=== PATIENT | female | born 1995 | race Caucasian/White ===

== ENCOUNTER → 2018-11-15 10:26 | Outpatient (CLI) | payer MEDICAID, SELFPAY ==
[2018-11-15 09:10] VITALS: BMI 33.7
[2018-11-15 11:01] LABS: Absolute Lymphocyte Count 2.31 X10^3/uL (0.83-4.51); Absolute Neutrophil Count 5.5 X10^3/uL (2.0-7.7); Basophil# 0.03 X10^3/uL; Basophil% 0.3 % (0-1); Eosinophil# 0.15 X10^3/uL; Eosinophils% 1.7 % (0-5); Hematocrit 36.3 % (37-47); Hemoglobin 12.4 g/dL (12.0-15.0); Lymphocyte # 2.31 X10^3/ul (4.0); Lymphocyte % 26.1 % (19-41); Mean Corp Hgb Conc 34.2 g/dL (32-36); Mean Corpuscular Hgb 29.7 pg (27.0-32.0); Mean Corpuscular Volume 87.1 fL (81-99); Mean Platelet Vol. 9.8 fl (6.2-12.0); NRBC Flagged by Analyzer 0 % (0-5); Neutrophil # 5.52 X10^3/uL (2.7-7.7); Neutrophil % 62.4 % (47-70); Platelet Count 276 K/mm3 (150-450); RBC Distribution Width CV 12.8 % (11.6-14.6); RBC Distribution Width SD 40.7 fl (35.1-43.9); Red Blood Count 4.17 M/mm3 (4.2-5.4); White Blood Count 8.9 K/mm3 (4.4-11.0)
[2018-11-15 11:11] LABS: Glucose Challenge Gest 1H 50g 82 mg/dL (70-140)
[2018-11-15 12:34] LABS: HIV - WCH Non-Reactive (Nonreactive); Hepatitis B Surface Antigen Non-Reactive (Nonreactive); Rubella IgG 3.8 IU/mL
[2018-11-18 01:45] LABS: Rapid Plasmin Reagin (RPR) NONREACTIVE (NONREACTIVE)
== END ==
PROVIDERS: Family Provider Family Medicine; PCP Family Medicine; Referring Provider Obstetrics & Gynecology; Visit Provider Obstetrics & Gynecology
DX: O09.90 Supervision of high risk pregnancy, unspecified, unspecified trimester (principal); Z3A.00 Weeks of gestation of pregnancy not specified
CPT/HCPCS: 36415; 82950; 85025; 86592; 86703; 86762; 86850; 86900; 86901; 87340

== ENCOUNTER → 2018-11-15 11:41 | Outpatient (CLI) | payer MEDICAID, SELFPAY ==
[2018-11-15 09:10] VITALS: BMI 33.7
[2018-11-15 16:25] LABS: Chlamydia Trachomatis by PCR Negative (Negative); Neisserai gonorrhoeae by PCR Negative (Negative); Probe Check PASS; Sample Adequacy Control PASS; Specimen Processing Control PASS
[2018-12-13 15:27] LABS: HPV Reflexed? NOT INDICATED
== END ==
PROVIDERS: Family Provider Family Medicine; PCP Family Medicine; Referring Provider Obstetrics & Gynecology; Visit Provider Obstetrics & Gynecology
DX: Z12.4 Encounter for screening for malignant neoplasm of cervix (principal); O09.90 Supervision of high risk pregnancy, unspecified, unspecified trimester; Z3A.00 Weeks of gestation of pregnancy not specified
CPT/HCPCS: 87086; 87088; 87491; 87591; 87624; 88175; G0145

== ENCOUNTER → 2018-12-15 10:41 | Outpatient (CLI) | payer MEDICAID, SELFPAY ==
[2018-12-15 10:16] VITALS: BMI 33.7
[2018-12-15 13:35] LABS: Amphetamine Urine VISTA NEGATIVE (<1000 ng/mL); Barbiturate Urine VISTA NEGATIVE (< 200 ng/mL); Benzodiazepine Urine VISTA NEGATIVE (< 200 ng/mL); Cocaine Urine VISTA NEGATIVE (< 300 ng/mL); Ecstacy Urine VISTA NEGATIVE (< 500 ng/mL); Methadone Urine VISTA NEGATIVE (< 300 ng/mL); PCP Urine VISTA NEGATIVE (< 25 ng/mL); THC Urine VISTA POSITIVE (< 50 ng/mL); Vista UDS pH Range 6
== END ==
PROVIDERS: Family Provider Family Medicine; PCP Family Medicine; Referring Provider Obstetrics & Gynecology; Visit Provider Obstetrics & Gynecology
DX: Z34.82 Encounter for supervision of other normal pregnancy, second trimester (principal); Z31.430 Encounter of female for testing for genetic disease carrier status for procreative management; F12.10 Cannabis abuse, uncomplicated
CPT/HCPCS: 36415; 80307

== ENCOUNTER → 2019-02-07 09:05 | Outpatient (CLI) | payer MEDICAID, SELFPAY ==
[2019-01-11 13:21] VITALS: BMI 33.7
--- NOTE | 2019-02-07 09:07 | US_ITS ---
STUDY: SECOND AND THIRD TRIMESTER OBSTETRICAL ULTRASOUND REASON FOR EXAM: Female, 23 years old . anatomy. LMP: September 04, 2018. TECHNIQUE: Transabdominal TECHNICAL QUALITY: Adequate. PRIOR ULTRASOUND: None. FINDINGS: There is a single intrauterine fetus. The fetus is in an transverse lie with the head on the maternal left side. There is demonstrated cardiac activity with a heart rate of 150 bpm. There is a normal amniotic fluid volume. The largest amniotic fluid pocket measures 2.8 cm x 7.3 cm. The amniotic fluid index (LIZ) is within normal limits. The placenta is posterior in location and is not low lying. There are Grade 1 placental changes. The cervix measures 4.3 cm in length. The bilateral adnexal regions are normal. BIOMETRY: BPD: 5.1 cm: 21 weeks, 2 days HC: 19.8 cm: 21 weeks, 6 days AC: 18.0 cm: 22 weeks, 6 days FL: 3.7 cm: 21 weeks, 4 days CI: 75% FL/BPD: 72% FL/HC: FL/AC: 20% HC/AC: 1.1 age by current US: 21 weeks, 6 days. SUNDEEP by current US: June 14, 2019. Estimated weight: 491 grams, +/- 73 grams, 42 %. Age by LMP: 22 weeks, 1 days. SUNDEEP by LMP: June 12, 2019. ANATOMY: Gender: Female Cranium: Normal lateral ventricles. Normal choroid plexus. Normal cerebellum. Normal cisterna magna. Normal face, nose and lips. Chest: Normal 4-chamber heart. Abdomen/Pelvis: Normal diaphragm. Normal stomach. Normal abdominal wall. Normal cord insertion. Normal 3 vessel cord. Normal kidneys. Normal bladder. Spine: Normal cervical spine. Normal thoracic spine. Normal lumbar spine. Normal sacrum. Extremities: Normal bilateral upper extremities. Normal bilateral lower extremities. US/OB Anatomy Scan IMPRESSION: Single live intrauterine gestation with a mean gestational age of 21 weeks and 6 days. Electronically Signed: Abbe Blum at 13:36 EST , Service support ,
[2019-02-07 14:36] LABS: Amphetamine Urine VISTA NEGATIVE (<1000 ng/mL); Barbiturate Urine VISTA NEGATIVE (< 200 ng/mL); Benzodiazepine Urine VISTA NEGATIVE (< 200 ng/mL); Cocaine Urine VISTA NEGATIVE (< 300 ng/mL); Ecstacy Urine VISTA NEGATIVE (< 500 ng/mL); Methadone Urine VISTA NEGATIVE (< 300 ng/mL); PCP Urine VISTA NEGATIVE (< 25 ng/mL); THC Urine VISTA POSITIVE (< 50 ng/mL); Vista UDS pH Range 7
== END ==
PROVIDERS: Family Provider Family Medicine; PCP Family Medicine; Referring Provider Nurse Practitioner Women's Health; Visit Provider Nurse Practitioner Women's Health
DX: O09.90 Supervision of high risk pregnancy, unspecified, unspecified trimester (principal); F12.10 Cannabis abuse, uncomplicated; Z3A.00 Weeks of gestation of pregnancy not specified
CPT/HCPCS: 76805; 80307

== ENCOUNTER → 2019-03-22 14:00 | Outpatient (CLI) | payer MEDICAID, SELFPAY ==
[2019-02-07 10:52] VITALS: BMI 33.7
[2019-03-22 15:04] LABS: Absolute Lymphocyte Count 2.55 X10^3/uL (0.83-4.51); Basophil# 0.03 X10^3/uL; Basophil% 0.2 % (0-1); Eosinophil# 0.19 X10^3/uL; Eosinophils% 1.5 % (0-5); Hematocrit 34.7 % (37-47); Hemoglobin 11.7 g/dL (12.0-15.0); Lymphocyte # 2.55 X10^3/ul (4.0); Lymphocyte % 20.2 % (19-41); Mean Corp Hgb Conc 33.7 g/dL (32-36); Mean Corpuscular Volume 85.9 fL (81-99); Mean Platelet Vol. 9.1 fl (6.2-12.0); Monocyte# 0.75 X10^3/uL; Monocyte% 5.9 % (0-10); NRBC Flagged by Analyzer 0 % (0-5); Neutrophil # 9.02 X10^3/uL (2.7-7.7); Neutrophil % 71.4 % (47-70); Platelet Count 310 K/mm3 (150-450); RBC Distribution Width CV 12.6 % (11.6-14.6); RBC Distribution Width SD 39.2 fl (35.1-43.9); Red Blood Count 4.04 M/mm3 (4.2-5.4); White Blood Count 12.6 K/mm3 (4.4-11.0)
[2019-03-22 15:15] LABS: Glucose Challenge Gest 1H 50g 99 mg/dL (70-140)
== END ==
PROVIDERS: Nurse Practitioner Women's Health; Family Provider Family Medicine; PCP Family Medicine; Referring Provider Obstetrics & Gynecology; Visit Provider Obstetrics & Gynecology
DX: O09.90 Supervision of high risk pregnancy, unspecified, unspecified trimester (principal); Z3A.00 Weeks of gestation of pregnancy not specified
CPT/HCPCS: 36415; 82950; 85025

== ENCOUNTER → 2019-04-19 14:23 | Outpatient (CLI) | payer MEDICAID, SELFPAY ==
[2019-04-19 14:18] VITALS: BMI 33.7
[2019-04-19 14:47] LABS: Hematocrit 35.5 % (37-47); Hemoglobin 11.7 g/dL (12.0-15.0); Mean Corpuscular Volume 84.9 fL (81-99); Platelet Count 343 K/mm3 (150-450); RBC Distribution Width CV 13.4 % (11.6-14.6); RBC Distribution Width SD 40.9 fl (35.1-43.9); Red Blood Count 4.18 M/mm3 (4.2-5.4); White Blood Count 14.1 K/mm3 (4.4-11.0)
[2019-04-19 14:48] LABS: Absolute Lymphocyte Count 2.93 X10^3/uL (0.83-4.51); Absolute Neutrophil Count 10.2 X10^3/uL (2.0-7.7); Basophil# 0.02 X10^3/uL; Basophil% 0.1 % (0-1); Eosinophil# 0.11 X10^3/uL; Eosinophils% 0.8 % (0-5); Lymphocyte # 2.93 X10^3/ul (4.0); Lymphocyte % 20.9 % (19-41); Mean Platelet Vol. 9.2 fl (6.2-12.0); Monocyte# 0.64 X10^3/uL; Monocyte% 4.6 % (0-10); NRBC Flagged by Analyzer 0 % (0-5); Neutrophil # 10.23 X10^3/uL (2.7-7.7); Neutrophil % 72.7 % (47-70)
[2019-04-19 15:13] LABS: ALB/GLOB Ratio 0.5 RATIO (0.9-2.4); AST(SGOT) 12 U/L (15-37); Alanine Aminotransfer ALT/SGPT 20 U/L (13-56); Albumin, Serum 2.6 g/dL (3.2-5.0); Alkaline Phosphatase 134 U/L (45-117); Anion Gap 6 (5-15); BUN 6 mg/dL (7-18); BUN/Creat Ratio 11.5 RATIO (10-20); Calcium,Total 9.2 mg/dL (8.5-10.1); Chloride 108 mmol/L (98-107); Creatinine, Serum 0.52 mg/dL (0.55-1.02); EST Glomerular Filtration Rate 151 mL/min (>60); Est Glom Filt Rate - Afr Amer 183 mL/min (>60); Globulin 4.8 g/dL (2.2-4.2); Glucose 92 mg/dL (74-106); Potassium 3.9 mmol/L (3.5-5.1); Protein, Total 7.4 g/dL (6.4-8.2); Sodium Level 138 mmol/L (136-145)
[2019-04-19 17:44] LABS: Protein, Urine (Random) 38.5 mg/dL (<11.9); Protein:Creat Ratio 232 mg/g CRE (0-200)
[2019-04-19 18:01] LABS: Amphetamine Urine VISTA NEGATIVE (<1000 ng/mL); Barbiturate Urine VISTA NEGATIVE (< 200 ng/mL); Benzodiazepine Urine VISTA NEGATIVE (< 200 ng/mL); Cocaine Urine VISTA NEGATIVE (< 300 ng/mL); Ecstacy Urine VISTA NEGATIVE (< 500 ng/mL); Methadone Urine VISTA NEGATIVE (< 300 ng/mL); PCP Urine VISTA NEGATIVE (< 25 ng/mL); THC Urine VISTA POSITIVE (< 50 ng/mL); Vista UDS pH Range 7
== END ==
PROVIDERS: Nurse Practitioner Women's Health; PCP Family Medicine; Referring Provider Obstetrics & Gynecology; Visit Provider Obstetrics & Gynecology
DX: O12.10 Gestational proteinuria, unspecified trimester (principal); F12.10 Cannabis abuse, uncomplicated; Z3A.00 Weeks of gestation of pregnancy not specified
CPT/HCPCS: 36415; 80053; 80307; 82570; 84156; 85025

== ENCOUNTER → 2019-05-02 11:05 | Outpatient (CLI) | payer MEDICAID, SELFPAY ==
[2019-05-02 10:50] VITALS: BMI 33.7
[2019-05-02 11:25] LABS: Absolute Lymphocyte Count 2.44 X10^3/uL (0.83-4.51); Absolute Neutrophil Count 8.3 X10^3/uL (2.0-7.7); Basophil# 0.03 X10^3/uL; Basophil% 0.3 % (0-1); Eosinophil# 0.08 X10^3/uL; Eosinophils% 0.7 % (0-5); Hematocrit 36.8 % (37-47); Hemoglobin 12.3 g/dL (12.0-15.0); Lymphocyte # 2.44 X10^3/ul (4.0); Lymphocyte % 21.2 % (19-41); Mean Corp Hgb Conc 33.4 g/dL (32-36); Mean Corpuscular Hgb 28.5 pg (27.0-32.0); Mean Corpuscular Volume 85.4 fL (81-99); Monocyte# 0.58 X10^3/uL; NRBC Flagged by Analyzer 0 % (0-5); Neutrophil # 8.32 X10^3/uL (2.7-7.7); Neutrophil % 72.1 % (47-70); Platelet Count 357 K/mm3 (150-450); RBC Distribution Width CV 13.3 % (11.6-14.6); RBC Distribution Width SD 41.2 fl (35.1-43.9); Red Blood Count 4.31 M/mm3 (4.2-5.4); White Blood Count 11.5 K/mm3 (4.4-11.0)
[2019-05-02 11:41] LABS: Protein, Urine (Random) 60.8 mg/dL (<11.9); Protein:Creat Ratio 251 mg/g CRE (0-200)
[2019-05-02 11:43] LABS: ALB/GLOB Ratio 0.5 RATIO (0.9-2.4); AST(SGOT) 13 U/L (15-37); Alanine Aminotransfer ALT/SGPT 18 U/L (13-56); Albumin, Serum 2.6 g/dL (3.2-5.0); Alkaline Phosphatase 142 U/L (45-117); Anion Gap 4 (5-15); BUN 7 mg/dL (7-18); BUN/Creat Ratio 12.9 RATIO (10-20); Calcium,Total 8.8 mg/dL (8.5-10.1); Chloride 105 mmol/L (98-107); Creatinine, Serum 0.54 mg/dL (0.55-1.02); EST Glomerular Filtration Rate 145 mL/min (>60); Est Glom Filt Rate - Afr Amer 175 mL/min (>60); Glucose 89 mg/dL (74-106); Potassium 3.9 mmol/L (3.5-5.1); Protein, Total 7.6 g/dL (6.4-8.2); Sodium Level 136 mmol/L (136-145)
== END ==
PROVIDERS: PCP Family Medicine; Referring Provider Nurse Practitioner Women's Health; Visit Provider Nurse Practitioner Women's Health
DX: O12.10 Gestational proteinuria, unspecified trimester (principal)
CPT/HCPCS: 36415; 80053; 82570; 84156; 85025

== ENCOUNTER 2019-05-12 07:25 | Outpatient (CLI) | payer MEDICAID, SELFPAY ==
[2019-05-02 10:50] VITALS: BMI 33.7
[2019-05-12] VITALS (11 sets, daily range): BP systolic 109–136; BP diastolic 71–100; PULSE 62–90; TEMP 36.7; O2SAT 96; BMI 36.3
[2019-05-12 09:41] LABS: Hematocrit 37.3 % (37-47); Hemoglobin 12.6 g/dL (12.0-15.0); Mean Corp Hgb Conc 33.8 g/dL (32-36); Mean Corpuscular Hgb 28.3 pg (27.0-32.0); Mean Corpuscular Volume 83.6 fL (81-99); Mean Platelet Vol. 9.5 fl (6.2-12.0); Platelet Count 311 K/mm3 (150-450); RBC Distribution Width CV 13.7 % (11.6-14.6); RBC Distribution Width SD 41.6 fl (35.1-43.9); Red Blood Count 4.46 M/mm3 (4.2-5.4); White Blood Count 10.6 K/mm3 (4.4-11.0)
[2019-05-12] MEDS: Acetaminophen 500 MG Tablet 1000 MG PO (09:47)
[2019-05-12 09:54] LABS: AST(SGOT) 19 U/L (15-37); Alanine Aminotransfer ALT/SGPT 20 U/L (13-56); Creatinine, Serum 0.53 mg/dL (0.55-1.02); EST Glomerular Filtration Rate 148 mL/min (>60); Est Glom Filt Rate - Afr Amer 179 mL/min (>60); Estimated Creatinine Clearance 134.23 ml/min; Uric Acid 5.7 mg/dL (2.6-6.0)
[2019-05-12 09:56] LABS: Prothrombin Time (Protime)PT. 12.5 SECONDS (11.7-14.9)
[2019-05-12 09:57] LABS: Partial Thromboplast Time 30.9 Seconds (24.1-36.2)
[2019-05-12 10:42] LABS: Protein, Urine (Random) 87.8 mg/dL (<11.9); Protein:Creat Ratio 284 mg/g CRE (0-200)
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
== END 2019-05-12 11:05 | disposition home or self-care (01) ==
LOC: WPOUT 07:42 → WP 07:42
PROVIDERS: PCP Family Medicine; Referring Provider Obstetrics & Gynecology; Visit Provider Obstetrics & Gynecology
DX: O47.9 False labor, unspecified (principal); Z3A.00 Weeks of gestation of pregnancy not specified
CPT/HCPCS: 36415; 59025; 59050; 82565; 82570; 84156; 84450; 84460; 84550; 85027; 85610; 85730; 99218; G0378

== ENCOUNTER 2019-05-14 12:20 | Inpatient (IN) | payer MEDICAID, SELFPAY ==
[2019-05-12 08:03] VITALS: BMI 36.3
[2019-05-14] VITALS (43 sets, daily range): BP systolic 109–184; BP diastolic 60–97; PULSE 63–104; TEMP 36.3–37.2; O2SAT 82–99; BMI 36.3
[2019-05-14] MEDS: Lactated Ringers 500 ML IV.SOLN. 1000 ML IV (12:01)
[2019-05-14 12:13] LABS: Absolute Lymphocyte Count 3.46 X10^3/uL (0.83-4.51); Absolute Neutrophil Count 6.6 X10^3/uL (2.0-7.7); Basophil# 0.02 X10^3/uL; Basophil% 0.2 % (0-1); Eosinophil# 0.07 X10^3/uL; Eosinophils% 0.7 % (0-5); Hemoglobin 12.6 g/dL (12.0-15.0); Lymphocyte # 3.46 X10^3/ul (4.0); Lymphocyte % 32.3 % (19-41); Mean Corp Hgb Conc 34.1 g/dL (32-36); Mean Corpuscular Hgb 28.3 pg (27.0-32.0); Mean Corpuscular Volume 83.1 fL (81-99); Mean Platelet Vol. 9.5 fl (6.2-12.0); Monocyte# 0.42 X10^3/uL; Monocyte% 3.9 % (0-10); NRBC Flagged by Analyzer 0 % (0-5); Neutrophil # 6.64 X10^3/uL (2.7-7.7); Neutrophil % 61.9 % (47-70); Platelet Count 335 K/mm3 (150-450); RBC Distribution Width CV 13.4 % (11.6-14.6); RBC Distribution Width SD 40.2 fl (35.1-43.9); Red Blood Count 4.45 M/mm3 (4.2-5.4); White Blood Count 10.7 K/mm3 (4.4-11.0)
[2019-05-14] MEDS: Lactated Ringers 500 ML 999 ML IV (12:30)
[2019-05-14] MEDS: Betamethasone/Betamethasone 30 MG/5 ML Vial 12 MG IM (12:32)
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
[2019-05-14] MEDS: Lactated Ringers 1,000 ML 200 ML IV ×2 (13:00→18:42)
[2019-05-14] MEDS: fentaNYL-bupivacaine (epidural) 100 ML BAG EPIDURAL ×2 (13:21→17:58)
[2019-05-14 14:13] LABS: Prothrombin Time (Protime)PT. 12.8 SECONDS (11.7-14.9)
[2019-05-14 14:14] LABS: Partial Thromboplast Time 29.1 Seconds (24.1-36.2)
[2019-05-14 14:19] LABS: AST(SGOT) 20 U/L (15-37); Alanine Aminotransfer ALT/SGPT 22 U/L (13-56); Creatinine, Serum 0.57 mg/dL (0.55-1.02); EST Glomerular Filtration Rate 138 mL/min (>60); Est Glom Filt Rate - Afr Amer 166 mL/min (>60); Estimated Creatinine Clearance 124.81 ml/min; Uric Acid 5.4 mg/dL (2.6-6.0)
[2019-05-14 15:42] LABS: Protein, Urine (Random) 9.7 mg/dL (<11.9); Protein:Creat Ratio 221 mg/g CRE (0-200)
[2019-05-14 15:45] LABS: Group B Strep DNA By PCR POSITIVE (Negative); Probe Check PASS
[2019-05-14 15:51] LABS: Amphetamine Urine VISTA NEGATIVE (<1000 ng/mL); Barbiturate Urine VISTA NEGATIVE (< 200 ng/mL); Benzodiazepine Urine VISTA NEGATIVE (< 200 ng/mL); Cocaine Urine VISTA NEGATIVE (< 300 ng/mL); Ecstacy Urine VISTA NEGATIVE (< 500 ng/mL); Methadone Urine VISTA NEGATIVE (< 300 ng/mL); PCP Urine VISTA NEGATIVE (< 25 ng/mL); THC Urine VISTA POSITIVE (< 50 ng/mL); Vista UDS pH Range 6
[2019-05-14] MEDS: Oxytocin 30 units/NS 500 ml 30 UNITS/500 ML IV.SOLN IV (18:58)
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
[2019-05-14] MEDS: Oxytocin 30 units/NS 500 ml 30 UNITS/500 ML IV.SOLN 334 UNITS IV (22:08)
[2019-05-15] VITALS (9 sets, daily range): BP systolic 123–143; BP diastolic 72–90; PULSE 63–78; RESP 14–16; TEMP 36.5–37.1; O2SAT 97
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
[2019-05-15] MEDS: Naproxen 250 MG Tablet 500 MG PO ×2 (11:23→20:07)
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
[2019-05-15] MEDS: Senna/Docusate Sodium 1 Tablet PO (20:07)
[2019-05-16 02:00] VITALS: BP 133/85; PULSE 72; RESP 16; TEMP 36.6
[2019-05-16 08:00] VITALS: BP 119/64; PULSE 61; RESP 16; TEMP 36.3
[2019-05-16] MEDS: Senna/Docusate Sodium 1 Tablet PO (08:03)
[2019-05-16] MEDS: Naproxen 250 MG Tablet 500 MG PO (08:03)
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
--- NOTE | 2019-05-16 08:05 | DCINST_ITS ---
Additional Instructions: If you experience any of the following, contact your healthcare provider. * Bleeding that soaks a pad every hour for 2 hours * Fever 100.4 or higher * Unrelieved incision or abdominal pain * Swelling, redness, discharge or bleeding from your incision or episiotomy site * Your incision begins to separate * Problems urinating (including inability to urinate or burning while urinating). * Visual changes * Severe headache * Flu-like symptoms * Pain or redness in one of both of your breasts * Pain, warmth, tenderness or swelling in your legs, especially the calf area * Frequent nausea and vomiting * Symptoms of depression or anxiety If you experience any of the following, call 911 or go to the nearest Emergency Room. * Chest pain * Problems breathing * Seizure activity * Partial or complete paralysis of a body part, slurred speech, weakness or drooping of the face, or a sudden inability to walk or hold your balance Allergies/Adverse Reactions: Allergies No Known Allergies Allergy (Verified 05/14/19 12:30) Medications to take at Discharge vitamin#30 30 mg iron-10 mg iron-folic acid 1 mg-omg3 capsule cap PO 05/02/19 Primary Care Physician: Annalise Caballero MD [Primary Care Provider] - Test Results: Test results from this visit will be discussed in further detail at your follow- up appointment, if applicable.
--- NOTE | 2019-05-16 08:05 | PCM.DCVAG ---
Additional Instructions: If you experience any of the following, contact your healthcare provider. Bleeding that soaks a pad every hour for 2 hours Fever 100.4 or higher Unrelieved incision or abdominal pain Swelling, redness, discharge or bleeding from your incision or episiotomy site Your incision begins to separate Problems urinating (including inability to urinate or burning while urinating). Visual changes Severe headache Flu-like symptoms Pain or redness in one of both of your breasts Pain, warmth, tenderness or swelling in your legs, especially the calf area Frequent nausea and vomiting Symptoms of depression or anxiety If you experience any of the following, call 911 or go to the nearest Emergency Room. Chest pain Problems breathing Seizure activity Partial or complete paralysis of a body part, slurred speech, weakness or drooping of the face, or a sudden inability to walk or hold your balance Allergies/Adverse Reactions: Allergies No Known Allergies Allergy (Verified 05/14/19 12:30) Medications to take at Discharge vitamin#30 30 mg iron-10 mg iron-folic acid 1 mg-omg3 capsule cap PO 05/02/19 Primary Care Physician: Annalise Caballero MD [Primary Care Provider] - Test Results: Test results from this visit will be discussed in further detail at your follow-up appointment, if applicable.
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
--- NOTE | 2019-05-16 15:40 | CASEMGMT ---
Social Work Labor and Delivery Unit Referral to [facility] ([facility]) at [phone]. Spoke with Rosa in the intake department. Referral due to substance exposed in utero as evidenced by multiple maternal drugs screens positive during . Brief maternal and histories provided. Refer to prior social work documentation for further details of social history for family. No other services requested or indicated at this time. -FLAVIO Celis, MONOGRAM TECHNICIAN
== END 2019-05-16 13:40 | disposition home or self-care (01) | DRG 560 ==
LOC: WPOUT 12:26 → WP 12:26
PROVIDERS: Admitting Provider Obstetrics & Gynecology; PCP Family Medicine; Visit Provider Obstetrics & Gynecology
DX: O60.14X0 Preterm labor third trimester with preterm delivery third trimester, not applicable or unspecified (principal); O12.14 Gestational proteinuria, complicating childbirth; O69.81X0 Labor and delivery complicated by cord around neck, without compression, not applicable or unspecified; O34.219 Maternal care for unspecified type scar from previous cesarean delivery; O99.324 Drug use complicating childbirth; F12.10 Cannabis abuse, uncomplicated; O99.334 Smoking (tobacco) complicating childbirth; F17.210 Nicotine dependence, cigarettes, uncomplicated; O99.214 Obesity complicating childbirth; E66.9 Obesity, unspecified; Z20.1 Contact with and (suspected) exposure to tuberculosis; Z87.01 Personal history of pneumonia (recurrent); Z3A.35 35 weeks gestation of pregnancy; Z37.0 Single live birth
CPT/HCPCS: 36415; 59025; 59050; 80307; 82565; 82570; 84156; 84450; 84460; 84550; 85025; 85027; 85610; 85730; 86850; 86900; 86901; 87653; 99218; J7120; G0378; J0702

== ENCOUNTER 2019-12-21 12:40 | Emergency (ER) | payer MEDICAID, SELFPAY ==
[2019-05-14 12:25] VITALS: BMI 36.3
[2019-12-21 12:41] VITALS: BP 140/96; PULSE 98; RESP 18; TEMP 36.6; O2SAT 99; BMI 33.6
--- NOTE | 2019-12-21 13:13 | ED.DCSUM_ITS ---
- ER Visit Summary Date of Service: 12/21/19 Chief Complaint: Nasal abscess with facial swelling History of Present Illness: The patient is a 24 F dates that she noticed a pimple in the right side of her nose for the last 2 days. She tried to pop it with a needle yesterday and squeezing it. Says now she has some swelling the right side of her face. Denies any fever chills. Denies any eye pain. No prior history. She is not diabetic. She has no allergies. Physical Examination: Well-appearing young female vital signs stable afebrile. She does not look septic or toxic she is in no distress. H EENT exam dry reactive light extra motions are intact. There is no proptosis. There is no eye pain with range of motion. She has mild swelling to her right cheek area. Also below her right eye. The right naris has minimal swelling but I do not see any obvious abscess that needs drained. Left side is unremarkable left face is unremarkable. Neck is nontender. There is no preauricular or cervical lymphadenopathy. Lungs clear to auscultation. Heart regular rhythm no murmur. Abdomen soft nontender. Patient is moving all 4 extremities. Neurovascular intact. Neurologic exam normal. Test Results: None Emergency Department Course and Treatment: Patient has mild right-sided facial swelling from trying to I&D a nasal pimple herself. There is nothing to drain at this time. She will be started on both Bactrim and Keflex. I have ENT on page of follow-up with the patient in the next few days. She knows to return if worse. Treatment Plan: Keflex 3 times daily Bactrim twice daily both for 10 days. Tylenol Motrin for pain. Return emergency department feeling a lot worse or swelling a lot worse. Follow-up with ENT either tomorrow or Wednesday. After speaking the ENT they also wanted the patient on Bactroban cream. Disposition: Discharge Impression: Right facial cellulitis secondary to reported right nasal abscess This note was generated with [employer] dictation software. It may contain incorrect words, spelling, and punctuation that were not noted in review of the chart prior to signing ED Disposition - Plan for ED Patient: Disposition: Home or Assisted Living Instructions: ED FACIAL CELLULITIS Prescriptions: Smz/Tmp Ds [Bactrim Ds] 1 tab PO BID #20 tab Prescription Printed Cephalexin [Keflex] 500 mg PO Q8 #30 cap Prescription Printed Referrals: Jesus Pedersen MD [STAFF PHYSICIAN] - As soon as possible Additional Instructions: Tylenol and/or Motrin for pain. Follow-up with Dr. Amilcar Torerz of ENT either tomorrow or Wednesday. Call their office for an appointment later today. Keflex antibiotic 3 times a day and Bactrim antibiotic twice a day both for 10 days. Return emergency department if feeling a lot worse or the swelling is a lot worse if you are unable to get into see ENT in the next several days.
--- NOTE | 2019-12-21 13:16 | ED.DEP ---
ED Disposition - Plan for ED Patient: Disposition: Home or Assisted Living Instructions: ED FACIAL CELLULITIS Prescriptions: Smz/Tmp Ds [Bactrim Ds] 1 tab PO BID #20 tab Prescription Printed Mupirocin Calcium [Bactroban Nasal] 1 gm NS BID #1 oint...g. Prescription Printed Cephalexin [Keflex] 500 mg PO Q8 #30 cap Prescription Printed Referrals: Jesus Pedersen MD [STAFF PHYSICIAN] - As soon as possible Additional Instructions: Tylenol and/or Motrin for pain. Follow-up with Dr. Amilcar Torrez of ENT either tomorrow or Wednesday. Call their office for an appointment later today. Keflex antibiotic 3 times a day and Bactrim antibiotic twice a day both for 10 days. Return emergency department if feeling a lot worse or the swelling is a lot worse if you are unable to get into see ENT in the next several days.
[2019-12-21] MEDS: Cephalexin 250 MG Capsule 500 MG PO (13:18)
[2019-12-21] MEDS: Smz/Tmp Ds Tablet 1 TABLET PO (13:18)
== END 2019-12-21 13:26 | disposition home or self-care (01) ==
LOC: ED 13:20
PROVIDERS: Emergency Provider Emergency Medicine; PCP Family Medicine
DX: L03.211 Cellulitis of face (principal); Z72.0 Tobacco use
CPT/HCPCS: 99281; 99284

== ENCOUNTER → 2020-07-16 10:56 | Outpatient (CLI) | payer MEDICAID, SELFPAY ==
--- NOTE | 2020-07-16 10:58 | US_ITS ---
STUDY: FIRST TRIMESTER OBSTETRICAL ULTRASOUND REASON FOR EXAM: Female, 24 years old viability LMP: 05/22/2020. TECHNIQUE: Transabdominal and Transvaginal TECHNICAL QUALITY: Adequate. PRIOR ULTRASOUND: None. FINDINGS: There is visualization of a single gestational sac in a normal intrauterine position. The mean sac diameter (MSD) measures 2.63 mm, indicating an estimated gestational age (EGA) of 7 weeks, 4 days. The gestational sac shape is within normal limits. There is a visualized yolk sac. The yolk sac measures 3.2 mm. The placenta is non-visualized. There is visualization of a live embryo. The crown-rump length (CRL) measures 1.51 cm, indicating an estimated gestational age (EGA) of 7 weeks, 6 days. There is demonstrated cardiac activity with a heart rate of 149 bpm. The estimated gestation age (EGA) by LMP is 7 weeks, 6 days. The estimated date of delivery (SUNDEEP) by LMP is 02/26/2021. The estimated gestation age (EGA) by US is 7 weeks, 5 days. The estimated date of delivery (SUNDEEP) by US is 02/27/2021. The uterus measures 9.2 cm x 6.6 cm x 5.2 cm. There is no demonstrated uterine fibroid. The cervix is closed. The right ovary is not visualized. The left ovary is not visualized. There is no fluid in the cul de sac. US/Transvaginal w/Preg US IMPRESSION: Single live intrauterine gestation with a mean gestational age of 7 weeks and 5 days. Electronically Signed: Abbe Blum MD at 15:55 EDT , Service support ,
== END ==
PROVIDERS: PCP Nurse Practitioner Family; Referring Provider Obstetrics & Gynecology; Visit Provider Obstetrics & Gynecology
DX: Z34.90 Encounter for supervision of normal pregnancy, unspecified, unspecified trimester (principal)
CPT/HCPCS: 76817

== ENCOUNTER → 2020-07-25 | Outpatient (CLI) | payer MEDICAID, SELFPAY ==
[2020-07-25 10:23] VITALS: BMI 33.6
[2020-07-25 13:39] LABS: Amphetamine Urine VISTA NEGATIVE (<1000 ng/mL); Barbiturate Urine VISTA NEGATIVE (< 200 ng/mL); Benzodiazepine Urine VISTA NEGATIVE (< 200 ng/mL); Cocaine Urine VISTA NEGATIVE (< 300 ng/mL); Ecstacy Urine VISTA NEGATIVE (< 500 ng/mL); Methadone Urine VISTA NEGATIVE (< 300 ng/mL); PCP Urine VISTA NEGATIVE (< 25 ng/mL); THC Urine VISTA POSITIVE (< 50 ng/mL); Vista UDS pH Range 7
[2020-07-26 20:08] LABS: Chlamydia By Nucleic Acid AMP Negative (Negative)
[2020-07-27 09:13] LABS: Gonococcus By Nucleic Acid AMP Negative (Negative)
[2020-08-01 16:57] LABS: HPV APTIMA, High Risk Negative (Negative)
[2020-08-01 16:58] LABS: HPV Reflexed? YES, CHARGE PATIENT
== END | disposition home or self-care (01) ==
LOC: LABSPEC 12:38
PROVIDERS: PCP Nurse Practitioner Family; Referring Provider Obstetrics & Gynecology; Visit Provider Obstetrics & Gynecology
DX: Z34.90 Encounter for supervision of normal pregnancy, unspecified, unspecified trimester (principal)
CPT/HCPCS: 80307; 87086; 87491; 87591; 87624; 88175; G0145

== ENCOUNTER → 2020-08-07 10:27 | Outpatient (CLI) | payer MEDICAID, SELFPAY ==
[2020-08-07 10:00] VITALS: BMI 33.6
[2020-08-07 11:53] LABS: Absolute Neutrophil Count 4.1 X10^3/uL (2.0-7.7); Basophil# 0.01 X10^3/uL; Basophil% 0.2 % (0-1); Eosinophils% 1.5 % (0-5); Hemoglobin 12.6 g/dL (12.0-15.0); Lymphocyte % 28.7 % (19-41); Mean Corp Hgb Conc 34.1 g/dL (32-36); Mean Corpuscular Hgb 29.5 pg (27.0-32.0); Mean Corpuscular Volume 86.7 fL (81-99); Monocyte# 0.48 X10^3/uL; Monocyte% 7.3 % (0-10); NRBC Flagged by Analyzer 0 % (0-5); Platelet Count 271 K/mm3 (150-450); RBC Distribution Width CV 12.7 % (11.6-14.6); Red Blood Count 4.27 M/mm3 (4.2-5.4); White Blood Count 6.6 K/mm3 (4.4-11.0)
[2020-08-07 12:31] LABS: Glucose Challenge Gest 1H 50g 91 mg/dL (70-140)
[2020-08-07 13:03] LABS: NATERA MAILED SPECIMEN
[2020-08-07 13:49] LABS: HIV - WCH Non-Reactive (Nonreactive); Hepatitis B Surface Antigen Non-Reactive (Nonreactive); Hepatitis C Antibody REACTIVE (Nonreactive); Rubella IgG Non-Reactive (Nonreactive); Syphilis Antibodies Non-reactive
== END ==
PROVIDERS: PCP Nurse Practitioner Family; Referring Provider Obstetrics & Gynecology; Visit Provider Obstetrics & Gynecology
DX: O99.210 Obesity complicating pregnancy, unspecified trimester (principal); E66.9 Obesity, unspecified; Z31.430 Encounter of female for testing for genetic disease carrier status for procreative management; Z3A.00 Weeks of gestation of pregnancy not specified
CPT/HCPCS: 36415; 82950; 85025; 86703; 86762; 86780; 86803; 86850; 86900; 86901; 87340; 87521

== ENCOUNTER → 2021-02-06 | Outpatient (CLI) | payer MEDICAID, SELFPAY ==
[2021-02-06 13:33] LABS: Amphetamine Urine VISTA NEGATIVE (<1000 ng/mL); Barbiturate Urine VISTA NEGATIVE (< 200 ng/mL); Benzodiazepine Urine VISTA NEGATIVE (< 200 ng/mL); Cocaine Urine VISTA NEGATIVE (< 300 ng/mL); Ecstacy Urine VISTA NEGATIVE (< 500 ng/mL); Methadone Urine VISTA NEGATIVE (< 300 ng/mL); PCP Urine VISTA NEGATIVE (< 25 ng/mL); THC Urine VISTA POSITIVE (< 50 ng/mL); Vista UDS pH Range 5
== END | disposition home or self-care (01) ==
LOC: LABSPEC 12:40
PROVIDERS: PCP Nurse Practitioner Family; Referring Provider Obstetrics & Gynecology; Visit Provider Obstetrics & Gynecology
DX: O99.321 Drug use complicating pregnancy, first trimester (principal); F12.10 Cannabis abuse, uncomplicated; Z3A.00 Weeks of gestation of pregnancy not specified
CPT/HCPCS: 80307; 87081

== ENCOUNTER 2021-02-14 20:09 | Outpatient (CLI) | payer MEDICAID, SELFPAY ==
[2021-02-14 20:28] VITALS: PULSE 84; TEMP 36.5; O2SAT 97
[2021-02-14 20:31] VITALS: BP 137/81; PULSE 80
[2021-02-14 20:36] VITALS: BMI 35.9
[2021-02-14 20:45] VITALS: PULSE 73; O2SAT 97
[2021-02-14 21:57] VITALS: PULSE 76; O2SAT 99
[2021-02-14 22:02] VITALS: PULSE 78; O2SAT 98
[2021-02-15 00:19] VITALS: BP 133/84; PULSE 67
[2021-02-15 03:45] LABS: Amphetamine Urine VISTA NEGATIVE (<1000 ng/mL); Barbiturate Urine VISTA NEGATIVE (< 200 ng/mL); Benzodiazepine Urine VISTA NEGATIVE (< 200 ng/mL); Cocaine Urine VISTA NEGATIVE (< 300 ng/mL); Ecstacy Urine VISTA NEGATIVE (< 500 ng/mL); Methadone Urine VISTA NEGATIVE (< 300 ng/mL); PCP Urine VISTA NEGATIVE (< 25 ng/mL); THC Urine VISTA POSITIVE (< 50 ng/mL); Vista UDS pH Range 5
--- NOTE | 2021-02-15 04:07 | OB.TRI.PN ---
Progress Notes Date of Service: 02/15/21 Progress Note: Patient presents for triage evaluation secondary to contractions FHT: 130 Moderate variability reactive no decelerations category I tracing [place]: q 4-6 Contractions Assessment and plan: false labor no cervical change Reactive NST, reassuring maternal and status patient discharged to home to follow-up as scheduled. See problem list details for additional plan information. Laboratory Studies: Laboratory Tests 02/15/21 Range/Units 01:00 Urine Opiates Screen NEGATIVE (< 300 ng/mL) Urine Methadone Screen NEGATIVE (< 300 ng/mL) Ur Barbiturates Screen NEGATIVE (< 200 ng/mL) Ur Phencyclidine Scrn NEGATIVE (< 25 ng/mL) Ur Amphetamines Screen NEGATIVE (<1000 ng/mL) U Methamphetamin-MDMA NEGATIVE (< 500 ng/mL) U Benzodiazepines Scrn NEGATIVE (< 200 ng/mL) Urine Cocaine Screen NEGATIVE (< 300 ng/mL) U Cannabinoids Screen POSITIVE H (< 50 ng/mL) Ur Drug Screen Comment Charges/Coding Multi Select Codes Urinary/Genital Urinary/Genital CPT Codes: 09898-78 non-stress test Interp
== END 2021-02-15 01:30 | disposition home or self-care (01) ==
LOC: WPOUT 20:17 → WP 20:17
PROVIDERS: PCP Nurse Practitioner Family; Visit Provider Obstetrics & Gynecology
DX: O47.9 False labor, unspecified (principal); Z3A.00 Weeks of gestation of pregnancy not specified
CPT/HCPCS: 59025; 59050; 80307; 99218; G0378

== ENCOUNTER 2021-02-16 11:05 | Inpatient (IN) | payer MEDICAID, SELFPAY ==
[2021-02-16] VITALS (39 sets, daily range): BP systolic 96–180; BP diastolic 53–95; PULSE 60–137; RESP 14–20; TEMP 36.1–36.9; O2SAT 95–100; BMI 35.6
[2021-02-16] MEDS: Lactated Ringers 1,000 ML 200 ML IV (11:10)
[2021-02-16] MEDS: Lactated Ringers 500 ML 999 ML IV (11:15)
[2021-02-16 11:21] LABS: Absolute Lymphocyte Count 2.92 X10^3/uL (0.83-4.51); Absolute Neutrophil Count 8.2 X10^3/uL (2.0-7.7); Basophil# 0.04 X10^3/uL; Basophil% 0.3 % (0-1); Eosinophil# 0.09 X10^3/uL; Eosinophils% 0.7 % (0-5); Hematocrit 37.9 % (37-47); Hemoglobin 12.4 g/dL (12.0-15.0); Lymphocyte # 2.92 X10^3/ul (0.83-4.51); Lymphocyte % 24.3 % (19-41); Mean Corp Hgb Conc 32.7 g/dL (32-36); Mean Corpuscular Hgb 27.1 pg (27.0-32.0); Mean Corpuscular Volume 82.9 fL (81-99); Mean Platelet Vol. 10.1 fl (6.2-12.0); Monocyte# 0.68 X10^3/uL; Monocyte% 5.7 % (0-10); NRBC Flagged by Analyzer 0 % (0-5); Neutrophil # 8.18 X10^3/uL (2.7-7.7); Neutrophil % 68.2 % (47-70); Platelet Count 362 K/mm3 (150-450); RBC Distribution Width CV 14.5 % (11.6-14.6); RBC Distribution Width SD 43.2 fl (35.1-43.9); Red Blood Count 4.57 M/mm3 (4.2-5.4)
[2021-02-16 11:47] LABS: Amphetamine Urine VISTA NEGATIVE (<1000 ng/mL); Barbiturate Urine VISTA NEGATIVE (< 200 ng/mL); Benzodiazepine Urine VISTA NEGATIVE (< 200 ng/mL); Cocaine Urine VISTA NEGATIVE (< 300 ng/mL); Ecstacy Urine VISTA NEGATIVE (< 500 ng/mL); Methadone Urine VISTA NEGATIVE (< 300 ng/mL); PCP Urine VISTA NEGATIVE (< 25 ng/mL); THC Urine VISTA POSITIVE (< 50 ng/mL); Vista UDS pH Range 5
[2021-02-16] MEDS: fentaNYL-bupivacaine (epidural) 100 ML BAG EPIDURAL (12:05)
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
--- NOTE | 2021-02-16 12:37 | DCINST_ITS ---
Discharge Instructions Diet Discharge Diet: No restrictions Activity Discharge Activity: May Not Drive (for 2 weeks or while taking narcotic pain medications.), May Shower and May Take a Tub Bath (in 7 days) May shower in (days): 0 May resume sexual activity in: 4-6 weeks Weight Bearing Status: Full weight bearing Lifting Restrictions: 20 pounds Dressing / Incision Call your doctor if your incision/area has: Continuous Slow Oozing, Sudden Increased Bleeding, Increased Pain/ Swelling, Increased Redness and Foul Smelling Discharge Call your doctor if you observe: Fever of 101 or Higher and Using more than 1 pad per hour (for 2 hours) Suture Line Care: Avoid Pulling/Pushing and Avoid Pinching/Bending Cleanse incision/area with: Soap & Water and Keep Dressing Clean & Dry Follow Up Care Please Follow Up With: Zoe George MD When: Call [phone] to make an appointment for an incision check in 1-2 weeks. Test Results: Test results from this visit will be discussed in further detail at your follow-up appointment, if applicable. Discharge Plan Admission Admit Date/Time: 02/16/21 11:05 Primary Reason for Your Visit: barrie Attending Provider: Zoe George Primary Care Provider: Kizzy Conner NP Discharge Orders/Prescriptions Prescriptions: New oxycodone-acetaminophen [Percocet] 5-325 mg tablet 1 tab PO Q6H PRN (Reason: pain) 7 Days Qty: 20 RF: 0 naproxen 250 MG tablet 250 - 500 mg PO Q8H PRN PRN (Reason: MILD PAIN) Qty: 30 RF: 1 Referrals / Follow Up: Kizzy Conner NP, [facility] [Primary Care Provider] - Disposition Disposition (needs filled in before D/C Order can be placed): Home, Self Care
[2021-02-16] MEDS: Sodium Citrate/Citric Acid 30 ML UDC PO (12:41)
[2021-02-16] MEDS: Oxytocin 30 units/NS 500 ml 30 UNITS/500 ML IV.SOLN 167 UNITS IV (14:05)
[2021-02-16] MEDS: Ketorolac 30 MG/ML Syringe IV ×2 (14:46→21:23)
[2021-02-16] MEDS: Acetaminophen 500 MG Tablet 1000 MG PO ×2 (15:22→21:25)
[2021-02-16] MEDS: Lactated Ringers 1,000 ML 100 ML IV (17:12)
[2021-02-16] MEDS: Lactated Ringers 1,000 ML 999 ML IV ×2 (18:25→21:35)
[2021-02-16] MEDS: Nalbuphine 10 MG/ML Ampul 5 MG IV ×2 (21:24→21:35)
[2021-02-17] MEDS: Lactated Ringers 1,000 ML 150 ML IV (00:03)
[2021-02-17 02:33] VITALS: RESP 18; O2SAT 97
[2021-02-17] MEDS: Nalbuphine 10 MG/ML Ampul 5 MG IV (02:35)
[2021-02-17] MEDS: Ketorolac 30 MG/ML Syringe IV ×2 (02:35→10:22)
[2021-02-17] MEDS: Acetaminophen 500 MG Tablet 1000 MG PO ×4 (02:36→22:23)
[2021-02-17 04:14] VITALS: BP 99/55; PULSE 69; RESP 18; TEMP 36.1
[2021-02-17 06:07] LABS: Hematocrit 27.7 % (37-47); Hemoglobin 8.9 g/dL (12.0-15.0); Mean Corp Hgb Conc 32.1 g/dL (32-36); Mean Corpuscular Volume 83.9 fL (81-99); Platelet Count 230 K/mm3 (150-450); RBC Distribution Width CV 14.4 % (11.6-14.6); RBC Distribution Width SD 44.5 fl (35.1-43.9); White Blood Count 8.6 K/mm3 (4.4-11.0)
--- NOTE | 2021-02-17 08:05 | PCM.PN.OB ---
Subjective Subjective Patient doing well without complaints. Tolerating PO. Ambulating and voiding without difficulty. feeding well. Denies chest pain, shortness of breath, calf pain/swelling, fevers, chills, lightheadedness. Objective Data Objective Data Vital Signs: Vital Signs Temp Pulse Resp BP Pulse Ox 97 F L 69 18 99/55 L 97 02/17/21 04:14 02/17/21 04:14 02/17/21 04:14 02/17/21 04:14 02/17/21 02:33 Oxygen Delivery Method Room Air Weight: 201 lb 0.985 oz Body Mass Index (BMI) 35.6 Intake & Output: Intake and Output for Last 24 Hours 02/15/21 02/16/21 02/17/21 23:59 23:59 23:59 Intake Total 5607.34 / 5607.34 1749.17 / 1749.17 Output Total 265 / 265 2200 / 2200 Balance 5342.34 / 5342.34 -450.83 / -450.83 Lab / Micro Data Result Diagrams: 02/17/21 05:50 Labs: Laboratory Results - last 24 hr 02/16/21 11:10: WBC 12.0 H, RBC 4.57, Hgb 12.4, Hct 37.9, MCV 82.9, MCH 27.1, MCHC 32.7, RDW Std Deviation 43.2, RDW Coeff of Jona 14.5, Plt Count 362, MPV 10.1, Immature Gran % (Auto) 0.800, Neut % (Auto) 68.2, Lymph % (Auto) 24.3, Sumner % (Auto) 5.7, Eos % (Auto) 0.7, Baso % (Auto) 0.3, Absolute Neuts (auto) 8.2 H, Absolute Lymphs (auto) 2.92, Nucleated RBC % 0 02/16/21 11:10: Blood Type O POSITIVE, Antibody Screen NEGATIVE 02/16/21 11:22: Urine Opiates Screen NEGATIVE, Urine Methadone Screen NEGATIVE, Ur Barbiturates Screen NEGATIVE, Ur Phencyclidine Scrn NEGATIVE, Ur Amphetamines Screen NEGATIVE, U Methamphetamin-MDMA NEGATIVE, U Benzodiazepines Scrn NEGATIVE, Urine Cocaine Screen NEGATIVE, U Cannabinoids Screen POSITIVE H, Ur Drug Screen Comment 02/17/21 05:50: WBC 8.6, RBC 3.30 L, Hgb 8.9 L, Hct 27.7 L, MCV 83.9, MCH 27.0, MCHC 32.1, RDW Std Deviation 44.5 H, RDW Coeff of Jona 14.4, Plt Count 230, MPV 10.0 Micro: Microbiology 02/16/21 11:15 Nasal Secretion SARS-CoV-2 Antigen (Rapid) - Final ROS Constitutional Constitutional: Reports systems reviewed and no addt'l complaints, except as documented Cardiovascular Cardiovascular: Reports systems reviewed and no addt'l complaints, except as documented Respiratory/Chest Respiratory/Chest: Reports systems reviewed and no addt'l complaints, except as documented Gastrointestinal Gastrointestinal: Reports systems reviewed and no addt'l complaints, except as documented Physical Exam Const alert, oriented x3 and no apparent distress HEENT Head and Scalp: atraumatic Resp normal respiratory effort GI soft to palpation and non-tender Inspection: incision intact, healing well and drainage (none) Bimanual Exam - Vag & Uterus: uterus non-tender Uterus Palpation: uterus fundus firm (below Umbilicus) Assessment & Plan (1) delivery delivered: COMMENT: RLTCS face presentation IAL 6cm girl Annalise (2) Face presentation of fetus: COMMENT: mentum posterior, impacted, 6-7cm ruptured clear fluid. will proceed with for delivery due to malpresentation PLAN: s/p LTCS PPD # 1 1. routine post care 2. breast feeding- support given 3. rh positive 4. rubella immune
--- NOTE | 2021-02-17 08:07 | EX.PCM.OBRPT ---
Assessment & Plan (1) Face presentation of fetus: COMMENT: mentum posterior, impacted, 6-7cm ruptured clear fluid. 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 Patient was prepped and draped in the normal sterile fashion. Pfannenstiel skin incision was made with the scalpel and carried through to the underlying layer of fascia with the scalpel. Fascia was nicked in the midline and the incision extended laterally. The rectus bellies were dissected off superiorly and inferiorly with out complication both sharply and bluntly. The peritoneum was entered digitally. The incision was stretched and a low transverse uterine incision was made with the scalpel. The infant's head was delivered atraumatically followed by the anterior and posterior shoulders without complication the rest of the delivered. The cord was clamped and cut and the was handed off to awaiting nurse. The placenta was delivered spontaneously immediately following and was noted to be intact and have a three-vessel cord. The uterus was exteriorized cleared of all clots and debris, and the incision was closed in a double layer closure using #1 Monocryl. The ovaries and fallopian tubes were noted to be within normal limits. The uterus was returned to the maternal abdomen and gutters were cleared of all clots and debris. The peritoneum was closed with 3-0 Monocryl in a running fashion. Gloves were changed prior to fascial closure. Fascia was closed with 0 PDS in a running fashion. Subcutaneous tissue was copiously irrigated and the skin was closed with 3-0 Monocryl in a subcuticular fashion. Mepilex dressing was applied without complication. Patient was taken to recovery in stable condition. It was discussed with the patient that based on the clinical information obtained during this encounter, combined with her history, at this time I would recommend vaginal or cesareans for future deliveries if further pregnancies are desired. Amniotic Membrane Rupture Type: Artificial Amniotic Fluid Description: Clear Placental Delivery Description: Spontaneous Placenta Disposition: [facility] Cord Vessel Description: 3 Vessels Cord Entanglement: None Delayed Cord Clamping: Yes Complications Risks of Surgery Discussed w/Patient: Bleeding, Infection, Need for Future C-Sections and Injury to surrounding structure(s) including bowel and bladder Complications: none Admit VTE Documentation VTE Present on Admission: No VTE Mechan Device Prophylaxis: SCD's Procedures Urinary/Genital [id number]: [id number] delivery+PP Care([facility])
[2021-02-17] MEDS: Senna/Docusate Sodium 1 Tablet PO (10:23)
[2021-02-17] MEDS: Enoxaparin 40 MG/0.4 ML Syringe SC (10:23)
[2021-02-17 10:26] VITALS: BP 114/74; PULSE 73; RESP 16; TEMP 36.7; O2SAT 98
[2021-02-17 11:40] VITALS: BP 121/76; PULSE 79; RESP 16; TEMP 36.4; O2SAT 98
[2021-02-17] MEDS: oxyCODONE 5 MG Tablet PO (15:45)
[2021-02-17 15:46] VITALS: BP 118/74; PULSE 85; RESP 16; TEMP 36.3; O2SAT 98
[2021-02-17] MEDS: Naproxen 500 MG Tablet PO (16:56)
[2021-02-17 20:30] VITALS: BP 117/70; PULSE 60; RESP 16; TEMP 36.1; O2SAT 100
[2021-02-18] MEDS: Naproxen 500 MG Tablet PO ×2 (00:56→09:16)
[2021-02-18 00:59] VITALS: BP 112/80; PULSE 78; RESP 16; TEMP 36.3; O2SAT 96
[2021-02-18] MEDS: oxyCODONE 5 MG Tablet PO ×2 (01:55→11:19)
[2021-02-18] MEDS: Acetaminophen 500 MG Tablet 1000 MG PO ×2 (04:51→10:37)
[2021-02-18 08:00] VITALS: BP 124/80; PULSE 80; RESP 18; TEMP 36.6; O2SAT 99
[2021-02-18] MEDS: Senna/Docusate Sodium 1 Tablet PO (10:37)
[2021-02-18] MEDS: Enoxaparin 40 MG/0.4 ML Syringe SC (10:38)
[2021-02-18 14:00] VITALS: BP 127/84; PULSE 78; RESP 16; TEMP 36.2; O2SAT 99
== END 2021-02-18 14:50 | disposition home or self-care (01) | DRG 540 ==
LOC: WPOUT 11:13 → WP 11:13
PROVIDERS: Admitting Provider Obstetrics & Gynecology; PCP Nurse Practitioner Family; Visit Provider Obstetrics & Gynecology
DX: O32.3XX0 Maternal care for face, brow and chin presentation, not applicable or unspecified (principal); O34.219 Maternal care for unspecified type scar from previous cesarean delivery; O98.32 Other infections with a predominantly sexual mode of transmission complicating childbirth; A63.0 Anogenital (venereal) warts; Z20.822 Contact with and (suspected) exposure to COVID-19; O99.324 Drug use complicating childbirth; F12.10 Cannabis abuse, uncomplicated; O99.334 Smoking (tobacco) complicating childbirth; F17.210 Nicotine dependence, cigarettes, uncomplicated; O99.214 Obesity complicating childbirth; E66.9 Obesity, unspecified; Z3A.39 39 weeks gestation of pregnancy; Z37.0 Single live birth
CPT/HCPCS: 59025; 59050; 80307; 85025; 85027; 86850; 86900; 86901; 87426; 99218; J7120; G0378; J2405